=== PATIENT | female | born 1960 | race American Indian/Alaskan Native ===

== ENCOUNTER 2016-09-12 10:22 | Inpatient (IN) | payer OTHER ==
[~2016-09-12 10:22] MED LIST: MORPHINE ONE; NITRO-BID 2% TP ONE; ZOFRAN ONE
[2016-09-12] MEDS ORDERED: HEPARIN/ 0.45% NACL-25,000 UNIT/500 ML 25,000 UNIT/500 ML BAG ONE (10:29)
[2016-09-12] MEDS ORDERED: HEPARIN 10,000 UNITS/10 ML ONE ×2 (10:29→10:54)
[2016-09-12] MEDS ORDERED: ZOFRAN IV ONE (10:30)
[2016-09-12] MEDS ORDERED: MORPHINE IV ONE (10:33)
[2016-09-12] MEDS ORDERED: HEPARIN 10,000 UNITS/10 ML IV ONE (10:36)
[2016-09-12] MEDS ORDERED: NITRO DUR TD ONE (10:36)
[2016-09-12 10:39] LABS: Hematocrit 40.3 % (30.3-42.9); Mean Corpuscular HGB Conc 32 % (30-34); Mean Corpuscular Hemoglobin 27 pg (28-32); Mean Corpuscular Volume 82 fl (79-97); Platelet Count 290 K/mm3 (140-440); Red Blood Count 4.91 M/mm3 (3.65-5.03); Red Cell Distribution Width 14.2 % (13.2-15.2); White Blood Count 7.9 K/mm3 (4.5-11.0)
[2016-09-12] MEDS: PLAVIX PO ONE ×2 (10:46→12:00)
--- NOTE | 2016-09-12 10:50 | Emergency Department Report ---
HPI - General Chief Complaint: Chest Pain Time Seen by Provider: 09/12/16 10:37 - HPI HPI: Room 1 The patient is a 56-year-old female presenting with a chief complaint of chest pain. EMS called ahead stating they had ST elevation in leads V1, V2, V3, V4 and depressions in leads 2, 3 and aVF. A were unable to transmit the EKG. A code STEMI was called prior to arrival at 10:15. Upon arrival a repeat EKG confirmed acute anterior STEMI. The patient states her symptoms began at approximately 09:30 this morning with substernal chest pain that was burning in nature. Patient does admit to shortness of breath but denies diaphoresis. The patient currently gives her pain a score of 10/10. The patient states she's never had a stress test or cardiac catheterization Location: Chest Duration: [see above] Quality: Burning Severity: 10/10 Modifying factors: [see above] Context: [see above] Mode of transportation: EMS ED Past Medical Hx - Past Medical History Hx Hypertension: Yes Hx Diabetes: Yes - Surgical History Past Surgical History?: No - Family History Family history: no significant - Social History Smoking Status: Never Smoker Substance Use Type: None - Medications Home Medications: Home Medications Medication Instructions Recorded Confirmed Last Taken Type Hydrochlorothiazide [Hctz] 12.5 mg PO QDAY 09/12/16 09/12/16 Unknown History Lisinopril [Zestril TAB] 10 mg PO QDAY 09/12/16 09/12/16 Unknown History metFORMIN [Glucophage] 1,000 mg PO BID 09/12/16 09/12/16 Unknown History ED Review of Systems ROS: Stated complaint: CHEST PAIN Other details as noted in HPI Comment: All other systems reviewed and negative Constitutional: denies: chills, fever Eyes: denies: eye pain, eye discharge, vision change ENT: denies: ear pain, throat pain Respiratory: shortness of breath Cardiovascular: chest pain Endocrine: no symptoms reported Gastrointestinal: denies: abdominal pain, diarrhea Genitourinary: denies: urgency, dysuria, discharge Musculoskeletal: denies: back pain, joint swelling, arthralgia Skin: denies: rash, lesions Neurological: denies: headache, weakness, paresthesias Psychiatric: denies: anxiety, depression Hematological/Lymphatic: denies: easy bleeding, easy bruising Physical Exam - Physical Exam Vital Signs: Vital Signs 09/12/16 09/12/16 09/12/16 10:24 10:29 10:33 Temperature 97.6 F Pulse Rate 79 70 Respiratory 20 16 16 Rate Blood Pressure 136/94 Blood Pressure 151/87 [Left] O2 Sat by Pulse 98 99 99 Oximetry 09/12/16 10:35 Temperature Pulse Rate 72 Respiratory Rate Blood Pressure 151/87 Blood Pressure [Left] O2 Sat by Pulse Oximetry Physical Exam: GENERAL: The patient is well-developed well-nourished female lying on stretcher appearing to be in acute distress. [] HEENT: Normocephalic. Atraumatic. Extraocular motions are intact. Patient has moist mucous membranes. NECK: Supple. Trachea midline CHEST/LUNGS: There is no respiratory distress noted. HEART/CARDIOVASCULAR: Regular. There is no tachycardia. ABDOMEN: There is no abdominal distention. SKIN: There is no rash. There is no edema. NEURO: The patient is awake, alert, and oriented. The patient is cooperative. The patient has normal speech MUSCULOSKELETAL: There is no evidence of acute injury. ED Course Vital Signs 09/12/16 09/12/16 09/12/16 10:24 10:29 10:33 Temperature 97.6 F Pulse Rate 79 70 Respiratory 20 16 16 Rate Blood Pressure 136/94 Blood Pressure 151/87 [Left] O2 Sat by Pulse 98 99 99 Oximetry 09/12/16 10:35 Temperature Pulse Rate 72 Respiratory Rate Blood Pressure 151/87 Blood Pressure [Left] O2 Sat by Pulse Oximetry - Consultations Consultation #1: 09/12/16 10:15 Code STEMI called. Call placed to Dr. Hyde- voicemail left 09/12/16 10:[address] Mckeon Consultation #2: 09/12/16 10:[address] Marrufo-he is on his way in to perform the cath ED Medical Decision Making - Lab Data Result diagrams: 09/12/16 10:20 Laboratory Tests 09/12/16 09/12/16 10:20 10:20 WBC 7.9 RBC 4.91 Hgb 13.0 Hct 40.3 MCV 82 MCH 27 L MCHC 32 RDW 14.2 Plt Count 290 Lymph % (Auto) Sanitation Worker Lymph # Sanitation Worker Seg Neutrophils % Sanitation Worker Sodium 138 Potassium 3.0 L Chloride 99.7 Carbon Dioxide 19 L Anion Gap 22 BUN 8 Creatinine 0.7 Estimated GFR > 60 BUN/Creatinine Ratio 11.42 Glucose 353 H Calcium 9.1 Troponin T < 0.010 - EKG Data -: EKG Interpreted by Me EKG shows normal: sinus rhythm Rate: normal - EKG Data When compared to previous EKG there are: previous EKG unavailable Interpretation: acute CT (ST elevation in leads V1, V2, V3, leads 1, aVL with ST depressions in leads 2, 3, aVF) - Differential Diagnosis STEMI Critical care attestation.: If time is entered above; I have spent that time in minutes in the direct care of this critically ill patient, excluding procedure time. ED Disposition Clinical Impression: STEMI (ST elevation myocardial infarction) Disposition: OP ADMITTED IP TO THIS HOSP Is pt being admited?: Yes Does the pt Need Aspirin: Yes Condition: Serious Time of Disposition: 10:47 (to [facility])
[2016-09-12 10:52] LABS: Anion Gap 22 mmol/L; BUN/Creatinine Ratio 11.42; Blood Urea Nitrogen 8 mg/dL (7-17); Calcium 9.1 mg/dL (8.4-10.2); Carbon Dioxide 19 mmol/L (22-30); Chloride 99.7 mmol/L (98-107); Glucose 353 mg/dL (65-100); Sodium 138 mmol/L (137-145)
[2016-09-12] MEDS ORDERED: CALAN ONE (10:54)
[2016-09-12] MEDS ORDERED: NITROGLYCERIN SYRINGE 3 ML ONE (10:54)
[2016-09-12] MEDS ORDERED: HEPARIN/NS 5000 UNIT/500ML(CATH LAB) 1,000 ML IR ONE (10:54)
[2016-09-12] MEDS ORDERED: XYLOCAINE 2% INFILTRATI ONE (10:54)
[2016-09-12] MEDS ORDERED: VERSED ONE (10:55)
[2016-09-12] MEDS ORDERED: WATER FOR INJ (PF) 0 ML ONE (10:56)
[2016-09-12] MEDS ORDERED: NACL 0.9% 0 ML ONE (10:56)
[2016-09-12] MEDS ORDERED: NACL 0.9% 1000 ML 1,000 ML ONE (10:56)
[2016-09-12] MEDS ORDERED: AGGRASTAT DRIP (12.5 MG/250 ML) 12,500 MCG/250 ML BAG IV ONE (10:56)
[2016-09-12] MEDS ORDERED: ANGIOMAX IV ONE (10:57)
[2016-09-12 10:59] LABS: INR 0.96 (0.87-1.13); Partial Thromboplastin Time 24.6 Sec. (24.2-36.6)
[2016-09-12] MEDS ORDERED: HEPARIN/ 0.45% NACL-25,000 UNIT/500 ML 25,000 UNIT/500 ML BAG IV SCH (11:00)
[2016-09-12] MEDS ORDERED: NITRO-BID 2% TP ONE ×2 (11:00→16:39)
[2016-09-12] MEDS: SUBLIMAZE ONE ×2 (11:07→11:39)
[2016-09-12] MEDS ORDERED: HEPARIN/NS 5000 UNIT/500ML(CATH LAB) 500 ML IR ONE (11:16)
[2016-09-12] MEDS ORDERED: LASIX ONE (11:47)
[2016-09-12] MEDS ORDERED: PLAVIX ONE (11:47)
[2016-09-12] MEDS ORDERED: ALUM-MAG HYDROX-SIMETH 200-200-20MG/5ML ONE (11:47)
[2016-09-12] MEDS ORDERED: D50W (25GM) IV PRN ×2 (12:39→16:43)
[2016-09-12 12:58] LABS: Blastocytes % (Manual) 0 %
[2016-09-12 12:59] LABS: Anisocytosis 1+; Diff Status Complete; Platelet Estimate Consistent w Auto
--- NOTE | 2016-09-12 13:04 | History and Physical Report ---
REASON FOR ADMISSION: ST elevation PR. HISTORY OF PRESENT ILLNESS: The patient is a 56-year-old female who presented with a chief complaint of chest pain. At the time I saw the patient, the patient was hemodynamically stable and breathing comfortably, but not able to provide history. The patient called the EMS with chest pain. EMS and had ST elevation in leads V1, V2, V3, V4 and depression in leads II, III and aVF. However, they were not able to transmit the EKG. Upon arrival to the ER, EKG was done and confirmed acute ST elevation myocardial infarction. The patient stated that symptoms began at 9:30 this morning with substernal chest pain that was burning in nature with associated shortness of breath. ST elevation myocardial infarction code was promptly called and the patient was taken to the cardiac catheterization lab. PAST MEDICAL HISTORY: Significant for hypertension and diabetes. PAST SURGICAL HISTORY: No history of surgical history. FAMILY HISTORY: No significant family history. SOCIAL HISTORY: The patient has no history of smoking, drinking, or IV drug abuse. MEDICATIONS: The patient's home medications include hydrochlorothiazide, lisinopril, and metformin. REVIEW OF SYSTEMS: Twelve point review of systems negative except for pertinent positive mentioned in history of present illness. PHYSICAL EXAMINATION: GENERAL: The patient is hemodynamically stable and spontaneously breathing, but lethargic and not able to provide history. HEENT: Pupils equal, round, reactive to light and accommodation. Extraocular musculature intact. Normocephalic, atraumatic. NECK: Supple. No lymphadenopathy. LUNGS: Clear to auscultation bilaterally. CARDIOVASCULAR: Regular rate and rhythm. Normal S1, S2. ABDOMEN: Soft, nontender, nondistended. Positive bowel sounds in all 4 quadrants. EXTREMITIES: No cyanosis, clubbing, or edema. LABORATORY DATA: Reviewed with white count 7.9, hemoglobin 13, hematocrit 40.3, platelets 290. Sodium 138, potassium 3.0, chloride 99.7, carbon dioxide 19, anion gap 22, BUN 8, creatinine 0.7, glucose 353, calcium 9.1, troponin less than 0.010. EKG shows sinus rhythm with ST elevation in leads V1 through V4 as well as reciprocal changes in II, III, aVF. DIAGNOSES: 1. ST elevation myocardial infarction. 2. Hypertension. 3. Diabetes. PLAN: The patient was brought emergently to the cardiac catheterization lab where she was found to have total occlusion of the proximal LAD. A 2.5 x 18 mm Resolute drug-eluting stent was placed into the proximal LAD with good results. The patient's ejection fraction was noted to be 30-35%. The patient started on beta mario, dual antiplatelet therapy, high intensity statin, and Aggrastat. The patient will be taken to the ICU for further supportive care. Check echocardiogram. JOB# [id number] /COLLEEN
[2016-09-12] MEDS ORDERED: K-DUR PO ONE ×2 (13:23→15:00)
--- NOTE | 2016-09-12 13:27 | Operative Report ---
PROCEDURES: 1. Left heart catheterization. 2. Left ventriculogram via hand injection. 3. PCI of the proximal LAD with placement of a Resolute drug-eluting stent. INDICATIONS FOR PROCEDURES: ST elevation myocardial infarction. CONTRAST USE: 180 mL. ESTIMATED BLOOD LOSS: Less than 30 mL. COMPLICATIONS: None. ANESTHESIA: IV Versed, fentanyl and 2 mL of 1% lidocaine around the right radial artery. DESCRIPTION OF PROCEDURE: The patient was brought back to the cardiac catheterization lab emergently. The patient was prepped and draped in the usual sterile fashion. A 2 mL of 1% lidocaine was injected around the right radial artery and a 6-Serbian sheath was placed via modified Seldinger technique. Next, [place] catheter was advanced over the wire and engaged into the right and left coronary ostia and angiography was performed in multiple views. At the end of the case after PCI, pigtail catheter was advanced over the wire, across the aortic valve into left ventricle where the left ventricular pressures were measured and LV gram was performed via hand injection. RESULTS: Left main coronary artery is a large caliber vessel that bifurcates into the left anterior descending and left circumflex coronary arteries. Left main coronary artery shows no significant disease. Left circumflex artery is a large moderate caliber dominant vessel giving off 3 obtuse marginal branches. The left circumflex coronary system shows luminal irregularities without significant stenosis in the main body of the left circumflex as well as all 3 obtuse marginal vessels. The left anterior descending coronary artery is a moderate caliber vessel, which is 100% occluded at the proximal segment. After being balloon dilated it was seen to have a proximal LAD lesion of approximately 15 mm. The remainder of the vessel showed mild diffuse disease without significant stenosis. The right coronary artery is a moderate caliber nondominant vessel with luminal irregularities. Left ventriculogram showed an ejection fraction of 30 to 35% with no gradient across the valve. End diastolic pressure was 44 mmHg. PCI PROCEDURE: After angiography of the left and right coronary arteries utilizing [place] catheter, a EBU 3.0 guide catheter was advanced over the wire and engaged into left main coronary artery. A Government Contracts Manager 50 wire was advanced across the proximal LAD lesion and into the mid segment LAD. A Government Contracts Manager 50 wire was used after another Government Contracts Manager 50 wire and a BMW wire failed to cross the lesion adequately. The lesion was difficult to cross. Next, a 2.5 x 15 Emerge balloon was advanced over the wire and inflated over the proximal LAD. The balloon was removed. The vessel showed good perfusion with significant proximal LAD lesion. Next, a 2.5 x 18 mm Resolute drug-eluting stent was advanced over the wire to the proximal LAD lesion and inflated to 9 atmospheres for 40 seconds. The stent balloon was then removed over the wire. Angiography was performed in multiple views and the stent was seen to be well opposed and adequately covering the lesion. Next, the catheter was removed over the wire. Of note, this was a particularly difficult procedure. The patient had multiple movements that kicked out both guidewire and balloon as well as the catheter. It required several attempts to stably place the guide catheter and wire. CONCLUSIONS: Acute anterior ST elevation myocardial infarction, status post successful percutaneous coronary intervention of the left anterior descending with a Resolute 2.5 x 18 mm drug-eluting stent. Initial angiography showed 100% occlusion with RHETT 0 flow. Post-procedure showed 0% residual stenosis with RHETT 3 flow. PLAN: The patient will be transferred to the ICU. The patient will be continued on Aggrastat for 18 hours as well as beta-mario, statin, and dual antiplatelet therapy. We will check echocardiogram. The patient will also be started on KIT inhibitor as LV function shows ejection fraction 30 to 35%. JOB# [id number] /COLLEEN
[2016-09-12] MEDS ORDERED: AGGRASTAT DRIP (12.5 MG/250 ML) 12,500 MCG/250 ML BAG IV SCH (14:00)
[2016-09-12] MEDS ORDERED: COREG ONE (14:34)
[2016-09-12] MEDS: COREG PO SCH ×2 (14:38→21:58)
[2016-09-12] MEDS ORDERED: ZESTRIL ONE (14:38)
[2016-09-12 16:08] LABS: Creatine Kinase TNR units/L (30-135); Creatine Kinase MB TNR ng/mL (0.0-4.0)
[2016-09-12] MEDS: GLUCOTROL PO SCH (16:59)
[2016-09-12] MEDS ORDERED: ZESTRIL PO SCH (17:00)
[2016-09-12] MEDS: NORVASC PO SCH (17:00)
[2016-09-12] MEDS: NORCO 5/325 PO PRN (17:00)
[2016-09-12] MEDS: ZESTRIL PO SCH (17:02)
[2016-09-13] MEDS: NORCO 5/325 PO PRN ×3 (01:37→20:51)
[2016-09-13 04:30] LABS: Hematocrit 39.1 % (30.3-42.9); Hemoglobin 12.7 gm/dl (10.1-14.3)
[2016-09-13 05:02] LABS: Anion Gap 17 mmol/L; BUN/Creatinine Ratio 13.33; Blood Urea Nitrogen 8 mg/dL (7-17); Calcium 8.8 mg/dL (8.4-10.2); Carbon Dioxide 23 mmol/L (22-30); Chloride 101.8 mmol/L (98-107); Glucose 291 mg/dL (65-100); Potassium 4.5 mmol/L (3.6-5.0); Sodium 137 mmol/L (137-145)
--- NOTE | 2016-09-13 07:39 | Admit Criteria Form ---
Admission Criteria Documentation: MYOCARDIAL INFARCTION Clinical Indications for Admission to Inpatient Care (Place 'X' for any and all applicable criteria): Admission is indicated for ANY ONE of the following (1)(2)(3)(4): [X]I. Acute [place] [X]II. Contraindications and/or Inappropriate clinical situations for Observational Care in patients with Myocardial Infarction, when ANY ONE of the following is required: [ ]a) Patient with High risk of cardiac embolism (e.g, patients with previous cardiac embolism, LVEF < 40%, age >75 and patients with prosthetic valve) 18 [ ]b) Patient with Moderate risk including DM patient, CAD and patient aged 65-75 18 [X]c) Patient with any change in cardiac biomarker especially troponin should be managed as high risk in an inpatient setting 19 [ ]d) Physician judgement irrespective of ECG and other diagnostic findings 20 [ ]III.General contraindications and/or Inappropriate clinical situations for Observational Care in patients with Myocardial Infarction, when ANY ONE of the following is required: [ ]a) Prediction of prolongation of LOS based on ANY ONE of the following may be considered as a contraindication for observational care 2, 3, 4, 5, 6, 7, 8, 9, 10, 11 [ ]i) Age > 65 yrs. [ ]ii) Patient arriving by ambulance [ ]iii) Patient with high acuity [ ]iv) Patient requiring vital sign monitoring [ ]v) Patient on IV medication [ ]b) Systolic blood pressures 180mmHg 3,12 [ ]c) Patient with altered mental status including delirium and other alteration of consciousness, (3) [ ]d) Patient whose discharge disposition will be to a residential home or rehabilitation home should not be managed in Emergency Department Observation Unit. CMS rule requires 3 days hospital stay before such placement. 3,13 [ ]e) Patient with failure to thrive due to broad array of etiologies 3 ,16,17 [ ]f) Inability to ambulate 3,14 Extended stay beyond goal length of stay may be needed for (1)(18)(20)(24)(25): [ ]a) Hemodynamic instability, persisting symptoms after intensive medical management, or recurring severe, prolonged symptoms [ ]b) Intravascular procedural complications such as acute vessel closure, stent thrombosis, stent malposition, or vessel dissection (26)(27)(28) [ ]c) Extravascular procedural complications such as retroperitoneal hematoma , pericardial effusion, or cardiac tamponade [ ]d) Entry site complications causing bleeding, hematoma or distal ischemia and requiring ongoing monitoring, surgical repair or surgical thrombectomy(29) [ ]e) Dangerous arrhythmia [ ]f) Complicated percutaneous coronary intervention (e.g., unsuccessful percutaneous coronary intervention or percutaneous coronary intervention of non- [place] vessel) [ ]g) Urgent or emergent surgery for complications of [place] (e.g., ventricular rupture, valvular insufficiency) [ ]h) Surgical revascularization via coronary artery bypass graft [ ]i) Heart failure (e.g., pulmonary edema) [ ]j) Unstable pulmonary comorbidities, including COPD or pneumonia (31) [ ]k) Acute renal failure The original [employer] content created by [employer] has been revised. The portions of the content which have been revised are identified through the use of italic text or in bold, and [facility] [employer] has neither reviewed nor approved the modified material. All other unmodified content is copyright [facility] [employer] Please see references footnoted in the original [facility] edition 2016 Admission Criteria Met: Yes
[2016-09-13] MEDS: ASPIRIN PO SCH (09:15)
[2016-09-13] MEDS: PLAVIX PO SCH (09:15)
[2016-09-13] MEDS: GLUCOTROL PO SCH (09:15)
[2016-09-13] MEDS: ZESTRIL PO SCH ×2 (09:16→21:43)
[2016-09-13] MEDS: NORVASC PO SCH (09:16)
[2016-09-13] MEDS: COREG PO SCH ×2 (09:16→21:44)
[2016-09-13] MEDS ORDERED: ZESTRIL PO SCH ×2 (10:00→19:42)
--- NOTE | 2016-09-13 19:37 | Progress Note ---
Assessment and Plan - Patient Problems (1) STEMI (ST elevation myocardial infarction) Current Visit: Yes Status: Acute Qualifiers: Involved coronary artery: I Plan to address problem: We will optimize blood pressure therapy, transfer to telemetry floor and plan discharge for tomorrow morning. Subjective Date of service: 09/13/16 Interval history: Patient looks and feels well following primary angioplasty for acute anterior wall STEMI. Is no stable sinus rhythm, 91 bpm. The pressure is 162 systolic. Objective Vital Signs Temp Pulse Pulse Resp BP Pulse Ox 09/13/16 18:11 111 H 18 125/90 99 09/13/16 18:00 113 H 18 125/90 98 09/13/16 17:51 109 H 29 H 125/79 99 09/13/16 17:41 107 H 23 125/79 99 09/13/16 17:31 111 H 19 125/79 99 09/13/16 17:21 122 H 13 125/79 99 09/13/16 17:11 111 H 19 125/79 99 09/13/16 17:00 93 H 20 123/68 100 09/13/16 16:55 99 09/13/16 16:11 110 H 15 146/89 99 09/13/16 16:00 97.8 F 91 H 16 146/89 99 09/13/16 15:51 92 H 14 131/88 100 09/13/16 15:41 96 H 20 131/88 99 09/13/16 15:31 92 H 15 131/88 100 09/13/16 15:21 97 H 19 131/88 100 09/13/16 15:11 91 H 17 131/88 97 09/13/16 15:00 91 H 17 131/88 100 09/13/16 14:51 91 H 16 142/88 99 09/13/16 14:41 96 H 13 142/88 100 09/13/16 14:31 99 H 15 142/88 100 09/13/16 14:21 106 H 15 142/88 100 09/13/16 14:11 98 H 20 142/88 99 09/13/16 14:00 90 19 142/88 99 09/13/16 13:51 94 H 18 132/85 100 09/13/16 13:41 96 H 20 132/85 98 09/13/16 13:31 93 H 15 132/85 100 09/13/16 13:21 104 H 18 132/85 98 09/13/16 13:11 102 H 17 132/85 99 09/13/16 13:00 97 H 11 L 132/85 99 09/13/16 12:51 93 H 13 142/94 99 09/13/16 12:41 87 15 142/94 99 09/13/16 12:31 90 18 130/91 99 09/13/16 12:21 95 H 14 130/91 100 09/13/16 12:11 97 H 12 130/91 100 09/13/16 12:00 98.1 F 93 H 16 142/94 99 09/13/16 11:51 92 H 12 130/91 99 09/13/16 11:41 96 H 15 130/91 100 09/13/16 11:31 96 H 12 130/91 100 09/13/16 11:21 96 H 13 130/91 100 09/13/16 11:11 88 12 130/91 99 09/13/16 11:00 94 H 10 L 130/91 100 09/13/16 10:51 88 12 132/87 98 09/13/16 10:41 93 H 16 132/87 98 09/13/16 10:31 91 H 12 132/87 100 09/13/16 10:21 98 H 14 132/87 99 09/13/16 10:11 97 H 10 L 132/87 99 09/13/16 10:00 83 11 L 132/87 100 09/13/16 09:51 101 H 12 144/97 98 09/13/16 09:41 100 H 10 L 144/97 100 09/13/16 09:31 96 H 11 L 144/97 100 09/13/16 09:21 92 H 11 L 144/97 99 09/13/16 09:16 93 H 144/97 09/13/16 09:11 92 H 16 144/97 100 09/13/16 09:00 92 H 14 144/97 100 09/13/16 08:51 92 H 12 144/90 100 09/13/16 08:41 95 H 16 144/90 99 09/13/16 08:31 91 H 15 144/90 100 09/13/16 08:25 83 1 L 09/13/16 08:24 100 09/13/16 08:21 94 H 15 142/92 100 09/13/16 08:11 96 H 14 138/86 100 09/13/16 08:01 95 H 11 L 138/86 100 09/13/16 08:00 97.9 F 09/13/16 07:51 98 H 14 138/86 99 09/13/16 07:41 89 16 138/86 100 09/13/16 07:31 95 H 13 138/86 100 09/13/16 07:21 95 H 12 138/86 100 09/13/16 07:11 87 15 138/86 100 09/13/16 07:00 94 H 15 138/86 98 09/13/16 06:51 91 H 11 L 127/89 100 09/13/16 06:41 94 H 17 127/89 100 09/13/16 06:31 83 13 127/89 100 09/13/16 06:20 87 14 127/89 100 09/13/16 06:10 89 15 125/85 99 09/13/16 06:00 80 13 127/89 100 09/13/16 05:51 85 15 131/89 99 09/13/16 05:41 82 14 131/89 99 09/13/16 05:31 85 15 131/89 100 09/13/16 05:21 85 14 131/89 100 09/13/16 05:11 87 11 L 131/89 100 09/13/16 05:00 88 10 L 131/89 100 09/13/16 04:51 84 13 123/84 99 09/13/16 04:41 83 15 123/84 99 09/13/16 04:31 81 15 123/84 99 09/13/16 04:21 82 11 L 123/84 100 09/13/16 04:11 83 14 123/84 99 09/13/16 04:00 84 12 123/84 100 09/13/16 03:51 85 13 125/85 99 09/13/16 03:41 93 H 13 99 09/13/16 03:30 90 14 125/85 99 09/13/16 03:21 93 H 18 125/85 98 09/13/16 03:11 91 H 14 125/85 99 09/13/16 03:00 98 H 10 L 125/85 100 09/13/16 02:51 94 H 16 155/100 99 09/13/16 02:41 94 H 15 155/100 99 04/03/17 02:31 91 H 18 155/100 100 09/13/16 02:21 94 H 18 155/100 99 09/13/16 02:11 94 H 17 155/100 99 09/13/16 02:00 91 H 16 155/100 100 09/13/16 01:51 95 H 20 132/90 99 09/13/16 01:41 93 H 19 132/90 100 09/13/16 01:31 100 H 13 132/90 100 09/13/16 01:21 91 H 15 132/90 100 09/13/16 01:11 99 H 23 132/90 100 09/13/16 01:00 94 H 17 132/90 100 09/13/16 00:51 96 H 11 L 142/88 100 09/13/16 00:41 93 H 14 142/88 100 09/13/16 00:31 97 H 12 142/88 99 09/13/16 00:21 97 H 20 142/88 99 09/13/16 00:11 110 H 15 142/88 100 09/13/16 00:00 95 H 18 142/88 98 09/12/16 23:51 96 H 16 133/85 100 09/12/16 23:41 95 H 19 133/85 99 09/12/16 23:31 93 H 18 133/85 99 09/12/16 23:21 93 H 24 133/85 99 09/12/16 23:11 98 H 19 133/85 100 09/12/16 23:03 94 H 14 133/85 100 09/12/16 23:00 96 H 17 133/85 98 09/12/16 22:51 101 H 18 154/79 99 09/12/16 22:41 97 H 20 154/79 98 09/12/16 22:31 99 H 19 154/79 100 09/12/16 22:21 94 H 20 154/79 100 09/12/16 22:11 99 H 19 154/79 100 09/12/16 22:00 91 H 18 154/79 100 09/12/16 21:58 95 H 162/100 09/12/16 21:51 94 H 18 162/100 100 09/12/16 21:41 93 H 15 162/100 100 09/12/16 21:31 107 H 17 165/100 99 09/12/16 21:21 101 H 14 165/100 98 09/12/16 21:11 93 H 16 165/100 100 09/12/16 21:00 95 H 11 L 165/100 100 09/12/16 20:51 91 H 14 151/97 100 09/12/16 20:41 85 13 151/97 100 09/12/16 20:31 86 16 151/97 100 09/12/16 20:21 85 13 151/97 100 09/12/16 20:11 91 H 15 151/97 100 09/12/16 20:00 88 15 151/97 100 09/12/16 19:55 100 09/12/16 19:51 90 11 L 146/92 100 09/12/16 19:41 94 H 11 L 146/92 100 - Physical Examination General: Appears Well, No Apparent Distress HEENT: Positive: PERRL Neck: Positive: neck supple Cardiac: Positive: Reg Rate and Rhythm Lungs: Positive: Decreased Breath Sounds Neuro: Positive: Grossly Intact Abdomen: Positive: Soft Skin: Positive: Clear Extremities: Absent: edema - Labs and Meds Cardiac Enzymes 09/12/16 Range/Units 19:08 CK-MB (CK-2) 300.0 H (0.0-4.0) ng/mL CBC 09/13/16 Range/Units 03:39 Hgb 12.7 (10.1-14.3) gm/dl Hct 39.1 (30.3-42.9) % Plt Count 256 (140-440) K/mm3 Comprehensive Metabolic Panel 09/13/16 Range/Units 03:39 Sodium 137 (137-145) mmol/L Potassium 4.5 D (3.6-5.0) mmol/L Chloride 101.8 (98-107) mmol/L Carbon Dioxide 23 (22-30) mmol/L BUN 8 (7-17) mg/dL Creatinine 0.6 L (0.7-1.2) mg/dL Glucose 291 H (65-100) mg/dL Calcium 8.8 (8.4-10.2) mg/dL
[2016-09-13] MEDS ORDERED: COREG PO SCH (19:42)
[2016-09-14 08:53] VITALS: BP 126/84
[2016-09-14] MEDS: ASPIRIN PO SCH (10:05)
[2016-09-14] MEDS: COREG PO SCH (10:05)
[2016-09-14] MEDS: ZESTRIL PO SCH (10:05)
[2016-09-14] MEDS: GLUCOTROL PO SCH (10:05)
[2016-09-14] MEDS: PLAVIX PO SCH (10:05)
[2016-09-14] MEDS: NORVASC PO SCH (10:05)
--- NOTE | 2016-09-14 11:26 | Discharge Summary ---
Providers - Providers Date of Admission: 09/14/16 09:00 Date of discharge: 09/14/16 Attending physician: APRIL GARCIA 09/12/16 Consult to Cardiac Rehabilitation [CONS] Routine Reason For Exam: Phase 1 Primary care physician: SKIN DIVING TEACHER Hospitalization Condition: Good Hospital course: Patient with a history of Hypertension, Diabetes was brought to this hospital with chest pain. An ECG on presentation showed an acute ST elevation myocardial infarction. Patient was taken to the engineer geophysical laboratory emergently and underwent PCI of the proximal LAD with a drug eluting stent. An echocardiogram showed an ejection fraction 20-25%. Patient has remained chest pain free post PCI and is ready for discharge home today. We will continue medical therapy for her coronary disease and dilated cardiomyopathy. Patient advised dietary restrictions and compliance with medications on discharge including plavix and aspirin. Patient will f/u with [facility] within 1 week of discharge. Disposition: DISCHARGED TO HOME OR SELFCARE Core Measure Documentation - Palliative Care Palliative Care/ Comfort Measures: Not Applicable - Core Measures Any of the following diagnoses?: acute [place] - Acute [place] Discharge Requirements Aspirin at discharge: Yes KIT/ARB for LVSD if EF <40%: Yes Beta mario at discharge: Yes Statin for LDL = or >100 mg/dl on DC: Yes Exam - Constitutional Vitals: Temp Pulse Resp BP Pulse Ox 98.3 F 81 20 126/84 98 09/14/16 08:00 09/14/16 10:00 09/14/16 08:00 09/14/16 08:00 09/14/16 10:00 General appearance: Present: no acute distress - EENT Eyes: Present: PERRL - Neck Neck: Present: normal ROM - Respiratory Respiratory effort: normal - Cardiovascular Rhythm: regular - Psychiatric Psychiatric: cooperative Plan Activity: advance as tolerated Diet: low fat, low cholesterol, low salt, diabetic Special Instructions: hold Metformin (48hrs post cardiac cath) Follow up with: BENEDICTO DAMICO MD [Primary Care Provider] - 7 Days APRIL GARCIA MD [Staff Physician] - 7 Days Prescriptions: Simvastatin [Zocor TAB] 40 mg PO QHS #30 tablet Aspirin [Adult Low Dose Aspirin EC] 81 mg PO QDAY #30 tablet. Carvedilol [Coreg] 12.5 mg PO BID #60 tablet Clopidogrel [Plavix] 75 mg PO QDAY #30 tablet Lisinopril [Zestril TAB] 40 mg PO QDAY #30 tablet
--- NOTE | 2016-09-15 08:54 | Cardiac Cath - PCI Report ---
PROCEDURES: 1. Left heart catheterization. 2. Left ventriculogram via hand injection. 3. PCI of the proximal LAD with placement of a Resolute drug-eluting stent. INDICATIONS FOR PROCEDURES: ST elevation myocardial infarction. CONTRAST USE: 180 mL. ESTIMATED BLOOD LOSS: Less than 30 mL. COMPLICATIONS: None. ANESTHESIA: IV Versed, fentanyl and 2 mL of 1% lidocaine around the right radial artery. DESCRIPTION OF PROCEDURE: The patient was brought back to the cardiac catheterization lab emergently. The patient was prepped and draped in the usual sterile fashion. A 2 mL of 1% lidocaine was injected around the right radial artery and a 6-Belizean sheath was placed via modified Seldinger technique. Next, [place] catheter was advanced over the wire and engaged into the right and left coronary ostia and angiography was performed in multiple views. At the end of the case after PCI, pigtail catheter was advanced over the wire, across the aortic valve into left ventricle where the left ventricular pressures were measured and LV gram was performed via hand injection. RESULTS: Left main coronary artery is a large caliber vessel that bifurcates into the left anterior descending and left circumflex coronary arteries. Left main coronary artery shows no significant disease. Left circumflex artery is a large moderate caliber dominant vessel giving off 3 obtuse marginal branches. The left circumflex coronary system shows luminal irregularities without significant stenosis in the main body of the left circumflex as well as all 3 obtuse marginal vessels. The left anterior descending coronary artery is a moderate caliber vessel, which is 100% occluded at the proximal segment. After being balloon dilated it was seen to have a proximal LAD lesion of approximately 15 mm. The remainder of the vessel showed mild diffuse disease without significant stenosis. The right coronary artery is a moderate caliber nondominant vessel with luminal irregularities. Left ventriculogram showed an ejection fraction of 30 to 35% with no gradient across the valve. End diastolic pressure was 44 mmHg. PCI PROCEDURE: After angiography of the left and right coronary arteries utilizing [place] catheter, a EBU 3.0 guide catheter was advanced over the wire and engaged into left main coronary artery. A Lap Grinder 50 wire was advanced across the proximal LAD lesion and into the mid segment LAD. A Lap Grinder 50 wire was used after another Lap Grinder 50 wire and a BMW wire failed to cross the lesion adequately. The lesion was difficult to cross. Next, a 2.5 x 15 Emerge balloon was advanced over the wire and inflated over the proximal LAD. The balloon was removed. The vessel showed good perfusion with significant proximal LAD lesion. Next, a 2.5 x 18 mm Resolute drug-eluting stent was advanced over the wire to the proximal LAD lesion and inflated to 9 atmospheres for 40 seconds. The stent balloon was then removed over the wire. Angiography was performed in multiple views and the stent was seen to be well opposed and adequately covering the lesion. Next, the catheter was removed over the wire. Of note, this was a particularly difficult procedure. The patient had multiple movements that kicked out both guidewire and balloon as well as the catheter. It required several attempts to stably place the guide catheter and wire. CONCLUSIONS: Acute anterior ST elevation myocardial infarction, status post successful percutaneous coronary intervention of the left anterior descending with a Resolute 2.5 x 18 mm drug-eluting stent. Initial angiography showed 100% occlusion with RHETT 0 flow. Post-procedure showed 0% residual stenosis with RHETT 3 flow. PLAN: The patient will be transferred to the ICU. The patient will be continued on Aggrastat for 18 hours as well as beta-mario, statin, and dual antiplatelet therapy. We will check echocardiogram. The patient will also be started on KIT inhibitor as LV function shows ejection fraction 30 to 35%. JOB# [id number] [facility]
== END 2016-09-14 14:38 | disposition home or self-care (01) | DRG 247 ==
LOC: ED 10:22 → CATH 10:22 → EDSTATUS 11:04 → CC1 12:25 → 4A 09-13 22:03 → OBSVTOIN 09-14 09:00
PROVIDERS: ADMIT Internal Medicine Cardiovascular Disease; ATTEND Internal Medicine Cardiovascular Disease
PROC: 027034Z Dilation of Coronary Artery, One Artery with Drug-eluting Intraluminal Device, Percutaneous Approach (ICD-10-PCS; principal; 2016-09-12)
PROC: 4A023N7 Measurement of Cardiac Sampling and Pressure, Left Heart, Percutaneous Approach (ICD-10-PCS; 2016-09-12)
PROC: B2111ZZ Fluoroscopy of Multiple Coronary Arteries using Low Osmolar Contrast (ICD-10-PCS; 2016-09-12)
PROC: B2151ZZ Fluoroscopy of Left Heart using Low Osmolar Contrast (ICD-10-PCS; 2016-09-12)
DX: I21.3 ST elevation (STEMI) myocardial infarction of unspecified site (principal); I42.0 Dilated cardiomyopathy; I10 Essential (primary) hypertension; E11.9 Type 2 diabetes mellitus without complications
CPT/HCPCS: 36415; 80048; 80061; 82550; 82553; 82962; 84484; 85007; 85014; 85018; 85025; 85049; 85610; 85730; 92941; 93005; 93010; 93306; 93458; 94760; A9270-GY; C1725; C1769; C1874; C1887; C1894; C9606; G0378; J0583; J1644; J1815; J1940; J2250; J2270; J2405; J3010; J3246; J7030; Q9967

== ENCOUNTER 2018-06-04 10:50 | Emergency (ER) | payer SELFPAY ==
--- NOTE | 2018-06-04 10:59 | Emergency Department Report ---
ED Neuro Deficit HPI - General Stated Complaint: STROKE Time Seen by Provider: 06/04/18 10:53 Source: patient, EMS, RN notes reviewed, old records reviewed Limitations: No Limitations - History of Present Illness Initial Comments: Mrs. Gomez is a 57-year-old female who awakened this morning with right-sided facial droop and dysarthria right foot weakness. Patient has history of hypertension and diabetes. No previous history of stroke. When EMS arrived, blood glucose is 290. Patient had obvious right facial droop and severe dysarthria according to EMS. EMS personnel were unable to understand patient. En route to hospital, patient's symptoms appeared to improve. She has mild headache. Denies chest pain. Denies abdominal pain. Last known well 1 AM just prior to going to bed. She awakened at 6 AM when she was awakened by grandson. She was unable to talk. She was unable to understand his questions. She continued to get ready to go to work. According to the daughter she seemed to not understand how severe her symptoms were. Daughter eventually called 911. According to EMR, patient was treated for ST elevation PR September 2016 - Related Data Home Medications: Home Medications Medication Instructions Recorded Confirmed Last Taken amLODIPine [Norvasc] 5 mg PO DAILY 09/12/16 09/12/16 Unknown glipiZIDE [Glucotrol] 5 mg PO QDAY 09/12/16 09/12/16 Unknown metFORMIN [Glucophage] 1,000 mg PO BID 09/12/16 09/12/16 Unknown Previous Rx's Medication Instructions Recorded Last Taken Type Aspirin [Adult Low Dose Aspirin EC] 81 mg PO QDAY #30 tablet. 09/14/16 Unknown Rx Carvedilol [Coreg] 12.5 mg PO BID #60 tablet 09/14/16 Unknown Rx Clopidogrel [Plavix] 75 mg PO QDAY #30 tablet 09/14/16 Unknown Rx Lisinopril [Zestril TAB] 40 mg PO QDAY #30 tablet 09/14/16 Unknown Rx Simvastatin [Zocor TAB] 40 mg PO QHS #30 tablet 09/14/16 Unknown Rx Allergies/Adverse Reactions: Allergies Allergy/AdvReac Type Severity Reaction Status Date / Time No Known Allergies Allergy Unverified 09/12/16 10:23 ED Review of Systems ROS: Stated complaint: STROKE Other details as noted in HPI Comment: All other systems reviewed and negative Constitutional: denies: malaise Respiratory: denies: cough Cardiovascular: denies: chest pain, palpitations ED Past Medical Hx - Past Medical History Previous Medical History?: Yes Hx Hypertension: Yes Hx Heart Attack/AMI: Yes Hx Diabetes: Yes - Surgical History Additional Surgical History: Cardiac stent - Family History Family history: CAD/PR, diabetes, hypertension - Social History Smoking Status: Never Smoker Substance Use Type: None Other Social History: Works as a salesperson trailers and motor homes - Medications Home Medications: Home Medications Medication Instructions Recorded Confirmed Last Taken Type amLODIPine [Norvasc] 5 mg PO DAILY 09/12/16 09/12/16 Unknown History glipiZIDE [Glucotrol] 5 mg PO QDAY 09/12/16 09/12/16 Unknown History metFORMIN [Glucophage] 1,000 mg PO BID 09/12/16 09/12/16 Unknown History Aspirin [Adult Low Dose Aspirin EC] 81 mg PO QDAY #30 tablet. 09/14/16 Unknown Rx Carvedilol [Coreg] 12.5 mg PO BID #60 tablet 09/14/16 Unknown Rx Clopidogrel [Plavix] 75 mg PO QDAY #30 tablet 09/14/16 Unknown Rx Lisinopril [Zestril TAB] 40 mg PO QDAY #30 tablet 09/14/16 Unknown Rx Simvastatin [Zocor TAB] 40 mg PO QHS #30 tablet 09/14/16 Unknown Rx ED Neuro Physical Exam - General General appearance: alert, in no apparent distress, other (right partial lower facial paralysis evident when speaking tearful obviously upset) Suspected Stroke: Yes - Head Head exam: Present: atraumatic, normocephalic - Eye Eye exam: Present: normal appearance - ENT ENT exam: Present: mucous membranes moist - Neck Neck exam: Present: normal inspection. Absent: tenderness, meningismus - Respiratory Respiratory exam: Present: normal lung sounds bilaterally. Absent: respiratory distress, wheezes, rales, rhonchi - Cardiovascular Cardiovascular Exam: Present: regular rate, normal rhythm, irregular rhythm, normal heart sounds. Absent: systolic murmur, diastolic murmur, rubs, gallop - GI/Abdominal GI/Abdominal exam: Present: soft, normal bowel sounds. Absent: distended, tenderness, guarding, rebound - Extremities Exam Extremities exam: Present: normal inspection - Back Exam Back exam: Present: normal inspection - Neurological Exam Neurological exam: Present: alert, oriented X3 - NIHSS Assessment Interval: Baseline 1a. Level of Consciousness: alert/keenly responsive 1b. LOC Questions: answers both correctly 1c. LOC Commands: performs tasks correctly 2. Best Gaze: normal 3. Visual: no visual loss 4. Facial Palsy: partial paralysis 5b. Motor Arm Right: no drift 5a. Motor Arm Left: no drift 6a. Motor Leg Left: no drift 6b. Motor Leg Right: no drift 7. Limb Ataxia: absent 8. Sensory: normal 9. Best Language: mild/moderate aphasia 10. Dysarthria: mild/moderate dysarthria 11. Extinction/Inattention: no abnormality Total Score: 4 Stroke Severity: Minor Stroke - Psychiatric Psychiatric exam: Present: normal affect, normal mood - Skin Skin exam: Present: warm, dry, intact, normal color. Absent: rash ED Course Vital Signs 06/04/18 06/04/18 06/04/18 10:50 11:05 11:16 Temperature 98.7 F Pulse Rate 99 H 111 H 109 H Respiratory 20 16 Rate Blood Pressure 183/107 183/107 O2 Sat by Pulse 97 99 Oximetry 06/04/18 06/04/18 11:29 11:30 Temperature Pulse Rate 91 H 100 H Respiratory 16 25 H Rate Blood Pressure 163/101 O2 Sat by Pulse 98 Oximetry - Lab Data Result diagrams: 06/04/18 11:40 06/04/18 11:40 Lab Results 06/04/18 06/04/18 06/04/18 Range/Units 11:07 11:40 11:40 WBC 6.4 (4.5-11.0) K/mm3 RBC 5.09 H (3.65-5.03) M/mm3 Hgb 13.6 (10.1-14.3) gm/dl Hct 42.4 (30.3-42.9) % MCV 83 (79-97) fl MCH 27 L (28-32) pg MCHC 32 (30-34) % RDW 14.8 (13.2-15.2) % Plt Count 248 (140-440) K/mm3 Lymph % (Auto) 34.6 (13.4-35.0) % [place] % (Auto) 9.6 H (0.0-7.3) % Eos % (Auto) 1.3 (0.0-4.3) % Baso % (Auto) 0.4 (0.0-1.8) % Lymph # 2.2 (1.2-5.4) K/mm3 [place] # 0.6 (0.0-0.8) K/mm3 Eos # 0.1 (0.0-0.4) K/mm3 Baso # 0.0 (0.0-0.1) K/mm3 Seg Neutrophils % 54.1 (40.0-70.0) % Seg Neutrophils # 3.5 (1.8-7.7) K/mm3 PT 13.1 (12.2-14.9) Sec. INR 0.95 (0.87-1.13) APTT 26.7 (24.2-36.6) Sec. Thrombin Time (15.1-19.6) Sec. Sodium (137-145) mmol/L Potassium (3.6-5.0) mmol/L Chloride (98-107) mmol/L Carbon Dioxide (22-30) mmol/L Anion Gap mmol/L BUN (7-17) mg/dL Creatinine (0.7-1.2) mg/dL Estimated GFR ml/min BUN/Creatinine Ratio % Glucose (65-100) mg/dL POC Glucose 340 H (70-105) Calcium (8.4-10.2) mg/dL Troponin T (0.00-0.029) ng/mL 06/04/18 06/04/18 Range/Units 11:40 11:40 WBC (4.5-11.0) K/mm3 RBC (3.65-5.03) M/mm3 Hgb (10.1-14.3) gm/dl Hct (30.3-42.9) % MCV (79-97) fl MCH (28-32) pg MCHC (30-34) % RDW (13.2-15.2) % Plt Count (140-440) K/mm3 Lymph % (Auto) (13.4-35.0) % [place] % (Auto) (0.0-7.3) % Eos % (Auto) (0.0-4.3) % Baso % (Auto) (0.0-1.8) % Lymph # (1.2-5.4) K/mm3 [place] # (0.0-0.8) K/mm3 Eos # (0.0-0.4) K/mm3 Baso # (0.0-0.1) K/mm3 Seg Neutrophils % (40.0-70.0) % Seg Neutrophils # (1.8-7.7) K/mm3 PT (12.2-14.9) Sec. INR (0.87-1.13) APTT (24.2-36.6) Sec. Thrombin Time 17.4 (15.1-19.6) Sec. Sodium 138 (137-145) mmol/L Potassium 4.1 (3.6-5.0) mmol/L Chloride 101.1 (98-107) mmol/L Carbon Dioxide 22 (22-30) mmol/L Anion Gap 19 mmol/L BUN 12 (7-17) mg/dL Creatinine 0.7 (0.7-1.2) mg/dL Estimated GFR > 60 ml/min BUN/Creatinine Ratio 17 % Glucose 339 H (65-100) mg/dL POC Glucose (70-105) Calcium 9.3 (8.4-10.2) mg/dL Troponin T 0.019 (0.00-0.029) ng/mL 06/04/18 11:16 EKG obtained 1107 Sinus tachycardia rate of 100 axis normal intervals no ST elevation +Q waves in anterior leads no signs of ischemia improved from previous EKG on 09/13/2016 at that time patient was experiencing anterior ST elevation PR, ST segments are normal in today's EKG. - Radiology Data 3 cm area of ischemia left frontal lobe with 0.5 cm area of hemorrhage - Medical Decision Making Mrs. Gomez presents with acute stroke symptoms of facial droop, right lower extremity weakness, dysarthria and aphasia. Cold stroke was initiated prior TURP patient's arrival. I spoke with Dr. Ghosh neurologists palpation was in the radiology department obtaining stat head CT. I discuss case with family members and paramedics. Radiologist informed me that patient had ischem ia/infarct with punctate hemorrhage in the left frontal lobe. Dr. Ghosh inpatient CVA evaluation including MRI. She denies other CTA will be helpful at this time. Aspirin was held due to hemorrhagic conversion of ischemic infarct. TPA is not indicated due to hemorrhagic conversion of an ischemic infarct. Upon discussion with neurologist Dr. Ghosh includes intracranial mass, vascular abnormality. Dr. Coto neurointensivist accepted patient to [facility]. Dr. Coto requests a systolic blood pressure to remain less than 150 mm Hg. accordingly I have ordered IV labetalol 10 mg. Patient is transferred in stable condition. I have updated the patient's family members regarding treatment plan. I have reviewed labs. Also reviewed last with Dr. Coto. Normal platelet count. Normal PT PTT. Only lab abnormality is elevated glucose. - Core Measures AMI Core Measures Followed: Yes - Thrombolytic Inclusion/Exclusion Thrombolytic Exclusion Criteria: Symptom Onset > 3 Hours Critical Care Time: Yes Critical care time in (mins) excluding proc time.: 40 Critical care attestation.: If time is entered above; I have spent that time in minutes in the direct care of this critically ill patient, excluding procedure time. 40 minutes of critical care time excluding procedures were used in the care of t he patient. Patient required multiple assessments and interventions. I reviewed the electronic medical record. I spoke with multiple consultants including radiologist, neurologist, neurointensive involved in the care of the patient. ED Disposition Clinical Impression: Hemorrhagic cerebrovascular accident (CVA), Ischemic cerebrovascular accident (CVA) Disposition: [id number]/TX-[id number] ANOTHER TYPE HLTHCARE Is pt being admited?: No Does the pt Need Aspirin: No Condition: Stable
--- NOTE | 2018-06-04 11:08 | Cat Scan Report ---
FINAL REPORT EXAM: CT HEAD/BRAIN WO CON HISTORY: neuro deficits < 6hrs or sx present upon awakening TECHNIQUE: CT of the Head without IV contrast. PRIORS: None currently available. FINDINGS: Series 2:- demonstrates a 3 cm area of decreased attenuation in the left frontal lobe. Internal a dena of punctate high density measuring 0.5 cm suggests hemorrhage. There is no midline shift. There is no hydrocephalus. There is no mass. Age appropriate liriano-white matter attenuation is noted. There is no calvarial fracture. The temporal bones demonstrate aerated mastoid air cells. The middle ears appear unremarkable. Paranasal sinuses are unremarkable. Globes are intact. IMPRESSION: Suspect hemorrhagic acute ischemia in the left frontal lobe. June 04, 2018 at 0807 PST: I discussed the findings over phone with Dr. Ordoñez.
[2018-06-04 11:50] LABS: Basophils % (Auto) 0.4 % (0.0-1.8); Eosinophils # (Auto) 0.1 K/mm3 (0.0-0.4); Eosinophils % (Auto) 1.3 % (0.0-4.3); Hematocrit 42.4 % (30.3-42.9); Hemoglobin 13.6 gm/dl (10.1-14.3); Lymphocytes # (Auto) 2.2 K/mm3 (1.2-5.4); Lymphocytes % (Auto) 34.6 % (13.4-35.0); Mean Corpuscular HGB Conc 32 % (30-34); Mean Corpuscular Hemoglobin 27 pg (28-32); Mean Corpuscular Volume 83 fl (79-97); Monocytes # (Auto) 0.6 K/mm3 (0.0-0.8); Monocytes % (Auto) 9.6 % (0.0-7.3); Platelet Count 248 K/mm3 (140-440); Red Blood Count 5.09 M/mm3 (3.65-5.03); Red Cell Distribution Width 14.8 % (13.2-15.2)
[2018-06-04 12:00] LABS: INR 0.95 (0.87-1.13)
[2018-06-04 12:01] LABS: Partial Thromboplastin Time 26.7 Sec. (24.2-36.6)
[2018-06-04 12:13] LABS: BUN/Creatinine Ratio 17; Blood Urea Nitrogen 12 mg/dL (7-17); Calcium 9.3 mg/dL (8.4-10.2); Hemolysis Index 13
[2018-06-04] MEDS ORDERED: DILAUDID IV ONE (13:14)
[2018-06-04] MEDS ORDERED: NORMODYNE IV ONE ×2 (13:23→14:00)
[2018-06-04] MEDS ORDERED: NORMODYNE PO ONE (13:31)
[2018-06-04 14:52] VITALS: BP 152/82
--- NOTE | 2018-06-04 15:30 | Consultation ---
This is a 57-year-old female who presents to the Emergency Room as a stroke alert. Review of her images on the CT show minimal liriano and white matter changes. There is a slight degree of some calcifications of the posterior falx, which are quite atypical and seen on the dorsal part of the vermis. There is also a solitary area in the left frontal gyrus. Differential for these would potentially be previous ____ or other calcific densities. Differential diagnosis is ____ scalp lateral film, possibility of being a physiological process should be considered. JOB# [id number] RAFFAELE/COLLEEN
--- NOTE | 2018-06-04 16:19 | Consultation ---
This is a 57-year-old black female who Dr. Ordoñez has asked me to evaluate. This patient presented to the Emergency Room with a new onset of slurred speech and mild headache. She presented with a marked elevation in blood pressure. Subsequent to admission, she has been noted to have a small area subcortically on the left hemisphere, which may represent a petechial hemorrhage and as I had gone over this CAT scan, I did not see any other marked abnormalities except for motion artifact in the posterior fossa. There are small calcifications of the falls in the midline, which I do think are hemorrhages, we would recommend getting MRI scan of the brain lowering her blood pressure. Neurological examination at present time is actually entirely normal. I spoke with her daughter, her ; at present, her blood pressure is 163/87 and has been trending down; at its top was 183/90. Speak with Dr. Ordoñez. Apparently, the tele neurologist did not have any other comments about care of the patient except blood pressure lowering. These areas of small changes are very miniscule and I would recommend getting an MRI scan of the brain doing coagulation profile. Given the fact her neurological examination is normal and she has completely resolved, I think careful monitoring is reasonable. Also, she has a past medical history of having cardiac stent previously placed for vessel disease. This does not seem to be cardioembolic however. JOB# [id number] RAFFAELE/COLLEEN
== END 2018-06-04 15:21 | disposition other institution (70) ==
LOC: ED 10:50
DX: I62.9 Nontraumatic intracranial hemorrhage, unspecified (principal); I63.9 Cerebral infarction, unspecified; I10 Essential (primary) hypertension; I25.2 Old myocardial infarction; E11.9 Type 2 diabetes mellitus without complications; Z95.5 Presence of coronary angioplasty implant and graft; Z79.84 Long term (current) use of oral hypoglycemic drugs
CPT/HCPCS: 36415; 70450; 80048; 82962; 84484; 85025; 85610; 85670; 85730; 93005; 93010